=== PATIENT | male | born 1955 | race Caucasian/White ===

== ENCOUNTER → 2018-02-11 | Day surgery (SDC) | payer OTHER ==
[~2018-02-11] MED LIST: METFORMIN HCL1000 MG; XANAX XR0.5 MG; ZETIA10 MG; ZOCOR20 MG
== END | disposition home or self-care (01) ==
LOC: AMB-ENDOS 09:47
DX: D12.3 Benign neoplasm of transverse colon (principal); K64.1 Second degree hemorrhoids; K57.32 Diverticulitis of large intestine without perforation or abscess without bleeding; Z86.010 Personal history of colon polyps

== ENCOUNTER 2018-06-24 09:30 | Day surgery (SDC) | payer OTHER | END 2018-06-24 16:28 | disposition home or self-care (01) | LOC: AMB-ENDOS 09:30 | DX: D12.3 Benign neoplasm of transverse colon (principal); K57.30 Diverticulosis of large intestine without perforation or abscess without bleeding; K64.1 Second degree hemorrhoids ==

== ENCOUNTER 2019-12-22 05:59 | Day surgery (SDC) | payer OTHER | END 2019-12-22 09:52 | disposition home or self-care (01) | LOC: AMB-ENDOS 05:59 → ADM 13:15 → AMB-ENDOS 13:15 | DX: D12.3 Benign neoplasm of transverse colon (principal); K57.30 Diverticulosis of large intestine without perforation or abscess without bleeding; K64.1 Second degree hemorrhoids ==

== ENCOUNTER 2020-01-08 17:08 | Inpatient (IN) | payer OTHER ==
[~2020-01-08] VITALS: Ht 175.3 cm; Wt 122.5 kg
[~2020-01-08 17:08] MED LIST changes: -METFORMIN HCL1000 MG; +METFORMIN HCL1000 MG PO; -XANAX XR0.5 MG; +XANAX XR0.5 MG PO; -ZOCOR20 MG; +ZOCOR20 MG PO
[2020-01-24] MEDS ORDERED: LOSARTAN POTASS50 MG PO (16:02)
[2020-01-24] MEDS ORDERED: DYNACIN50 MG (16:02)
[2020-01-30] MEDS ORDERED: DYMISTA NASAL S23 GM (16:14)
[2020-01-30] MEDS ORDERED: MONTELUKAST SOD10 MG PO (16:14)
[2020-01-30] MEDS ORDERED: SIMVASTATIN40 MG PO (16:14)
[2020-01-30] MEDS ORDERED: ALLER-TEC10 MG PO (16:16)
[2020-01-30] MEDS ORDERED: ALPRAZOLAM1 MG PO (16:17)
== END 2020-02-02 16:52 | disposition home or self-care (01) | DRG 329 ==
LOC: O/R 01-30 05:55 → SURG 01-30 05:55
PROVIDERS: ADMIT Colon & Rectal Surgery
PROC: 07BB4ZX Excision of Mesenteric Lymphatic, Percutaneous Endoscopic Approach, Diagnostic (ICD-10-PCS; 2020-01-30)
PROC: 0DBU4ZZ Excision of Omentum, Percutaneous Endoscopic Approach (ICD-10-PCS; 2020-01-30)
PROC: 0DJD8ZZ Inspection of Lower Intestinal Tract, Via Natural or Artificial Opening Endoscopic (ICD-10-PCS; 2020-01-30)
PROC: 4A033R1 Measurement of Arterial Saturation, Peripheral, Percutaneous Approach (ICD-10-PCS; 2020-01-30)
PROC: 4A12X4Z Monitoring of Cardiac Electrical Activity, External Approach (ICD-10-PCS; 2020-01-30)
PROC: 0DTL4ZZ Resection of Transverse Colon, Percutaneous Endoscopic Approach (ICD-10-PCS; principal; 2020-01-30 10:30)
PROC: B246ZZZ Ultrasonography of Right and Left Heart (ICD-10-PCS; 2020-01-31)
DX: D12.3 Benign neoplasm of transverse colon (principal); I50.21 Acute systolic (congestive) heart failure; D62 Acute posthemorrhagic anemia; K57.32 Diverticulitis of large intestine without perforation or abscess without bleeding; Z99.11 Dependence on respirator [ventilator] status; I11.0 Hypertensive heart disease with heart failure; K66.0 Peritoneal adhesions (postprocedural) (postinfection); G47.33 Obstructive sleep apnea (adult) (pediatric); E66.01 Morbid (severe) obesity due to excess calories; E11.9 Type 2 diabetes mellitus without complications; Z79.4 Long term (current) use of insulin

== ENCOUNTER 2020-01-11 11:49 | Outpatient (CLI) | payer OTHER ==
[~2020-01-11 11:49] MED LIST changes: +METFORMIN HCL1000 MG; -METFORMIN HCL1000 MG PO; +XANAX XR0.5 MG; -XANAX XR0.5 MG PO; +ZOCOR20 MG; -ZOCOR20 MG PO
== END 2020-01-11 11:51 | disposition home or self-care (01) ==
LOC: RAD 11:49
DX: D12.3 Benign neoplasm of transverse colon (principal); Z86.010 Personal history of colon polyps; K92.1 Melena

== ENCOUNTER 2021-03-07 07:29 | Day surgery (SDC) | payer OTHER ==
[~2021-03-07 07:29] MED LIST changes: +ALLER-TEC10 MG PO; +ALPRAZOLAM1 MG PO; +DYMISTA NASAL S23 GM; +DYNACIN50 MG; +LOSARTAN POTASS50 MG PO; -METFORMIN HCL1000 MG; +METFORMIN HCL1000 MG PO; +MONTELUKAST SOD10 MG PO; +SIMVASTATIN40 MG PO; -XANAX XR0.5 MG; +XANAX XR0.5 MG PO; -ZOCOR20 MG; +ZOCOR20 MG PO
== END 2021-03-07 13:10 | disposition home or self-care (01) ==
LOC: AMB-ENDOS 07:29
PROVIDERS: ATTEND Colon & Rectal Surgery
DX: D12.3 Benign neoplasm of transverse colon (principal); K62.1 Rectal polyp; K64.2 Third degree hemorrhoids; Z20.822 Contact with and (suspected) exposure to COVID-19